=== PATIENT | male | born 1980 | race Caucasian/White ===

== ENCOUNTER 2017-06-04 10:57 | Emergency (ER) | payer MEDICAID, OTHER ==
[~2017-06-04] VITALS: Ht 167.6 cm; Wt 60.2 kg
[~2017-06-04 10:57] MED LIST: CETI-102 PO; FLUT16SP2 BOTHNARES; IBUP-1984 PO
[2017-06-04 11:22] VITALS: BP 138/81
[2017-06-04] MEDS ORDERED: IBUP-1984 PO (12:06)
== END 2017-06-04 12:22 | disposition home or self-care (01) ==
LOC: ER 10:58
DX: M25.511 Pain in right shoulder (principal); K21.9 Gastro-esophageal reflux disease without esophagitis; F12.10 Cannabis abuse, uncomplicated; F15.10 Other stimulant abuse, uncomplicated; Z88.8 Allergy status to other drugs, medicaments and biological substances; Z87.442 Personal history of urinary calculi
CPT/HCPCS: 99282

== ENCOUNTER 2017-11-27 15:53 | Emergency (ER) | payer MEDICAID, OTHER ==
[~2017-11-27] VITALS: Ht 170.2 cm; Wt 64.1 kg
[2017-11-27 16:03] VITALS: BP 117/81
[2017-11-27] MEDS ORDERED: ketorolac trometh inj. 60 MG/2 ML VIAL IM ONE (16:15)
[2017-11-27] MEDS ORDERED: TRAM50TA2 PO (16:35)
== END 2017-11-27 16:35 | disposition home or self-care (01) ==
LOC: ER 15:53
DX: R07.81 Pleurodynia (principal); R06.02 Shortness of breath; K21.9 Gastro-esophageal reflux disease without esophagitis; F12.90 Cannabis use, unspecified, uncomplicated; F15.90 Other stimulant use, unspecified, uncomplicated; Z88.8 Allergy status to other drugs, medicaments and biological substances; Z79.899 Other long term (current) drug therapy; Z79.1 Long term (current) use of non-steroidal anti-inflammatories (NSAID)
CPT/HCPCS: 71100; 96372; 99284; J1885

== ENCOUNTER 2018-04-20 06:59 | Emergency (ER) | payer MEDICAID, OTHER ==
[~2018-04-20] VITALS: Ht 167.6 cm; Wt 60.4 kg
[2018-04-20 07:05] VITALS: BP 132/94
[2018-04-20] MEDS ORDERED: ondansetron 4mg rapidly disintigrating tab PO ONE (08:20)
[2018-04-20] MEDS ORDERED: mag hydrox/Alum hydrox/simeth 30ml oral suspension PO ONE (08:20)
[2018-04-20] MEDS ORDERED: ONDA4TAB9 SL (08:23)
== END 2018-04-20 08:53 | disposition home or self-care (01) ==
LOC: ER 07:00
DX: R10.13 Epigastric pain (principal); R11.0 Nausea; R19.7 Diarrhea, unspecified; K21.9 Gastro-esophageal reflux disease without esophagitis; F12.90 Cannabis use, unspecified, uncomplicated; F15.90 Other stimulant use, unspecified, uncomplicated; Z88.8 Allergy status to other drugs, medicaments and biological substances; Z79.899 Other long term (current) drug therapy
CPT/HCPCS: 99283